=== PATIENT | female | born 1945 | race Caucasian/White ===

== ENCOUNTER 2020-06-13 12:11 | Outpatient (CLI) | payer OTHER ==
[~2020-06-13 12:11] MED LIST: ACTIGALL300 MG PO; ASPIR 8181 MG PO; CRESTOR10 MG PO; DILTIAZEM 24HR120 MG PO; FENOFIBRATE160 MG PO; MULTI VITAMIN1 EACH PO; POLY119PG PO; RECTICARE30 GM TP; SYNTHROID50 MCG PO; ZESTRIL30 MG PO
== END 2020-06-13 15:55 | disposition home or self-care (01) ==
LOC: PPH VACUNA 12:11
PROVIDERS: ATTEND Emergency Medicine Pediatric Emergency Medicine
DX: Z23 Encounter for immunization (principal)

== ENCOUNTER → 2020-07-04 08:00 | Outpatient (CLI) | payer OTHER | END | disposition home or self-care (01) | LOC: PPH VACUNA 08:00 | PROVIDERS: ATTEND Emergency Medicine Pediatric Emergency Medicine | DX: Z23 Encounter for immunization (principal) ==

== ENCOUNTER 2024-02-17 05:56 | Day surgery (SDC) | payer OTHER ==
[2024-02-17] MEDS ORDERED: CEFAZOLIN SODIUM 1,000 MG VIAL ONE (07:38)
[2024-02-17] MEDS ORDERED: CHLORHEXIDINE GLUCONATE 120 ML BOTTLE TOP ONE (09:51)
[2024-02-17] MEDS ORDERED: VANCOMYCIN HCL 1,000 MG VIAL ONE (09:53)
[2024-02-17] MEDS ORDERED: TRAM1TAB98 PO (11:06)
[2024-02-17] MEDS ORDERED: MACROBID 100 M100 MG PO (11:06)
[2024-02-17] MEDS ORDERED: MORPHINE SULFATE 2 MG/ML CARTRIDGE IV ONE (12:05)
== END 2024-02-17 13:25 | disposition home or self-care (01) ==
LOC: CIR.AMB 05:56
PROVIDERS: ATTEND Obstetrics & Gynecology Gynecology
DX: N81.5 Vaginal enterocele (principal); N81.11 Cystocele, midline; N81.6 Rectocele; I10 Essential (primary) hypertension; E03.9 Hypothyroidism, unspecified; F41.9 Anxiety disorder, unspecified